=== PATIENT | male | born 1955 | race African-American/Black ===

== ENCOUNTER 2019-08-04 13:27 | Emergency (ER) | payer SELFPAY ==
--- NOTE | 2019-08-04 13:50 | EDM.PDOC ---
ED HPI GENERAL MEDICAL PROBLEM - General Stated Complaint: back pain and left wrist pain Time Seen by Provider: 08/04/19 13:47 Source of Information: Reports: Patient History Limitations: Reports: No Limitations - History of Present Illness INITIAL COMMENTS - FREE TEXT/NARRATIVE: HISTORY AND PHYSICAL: History of present illness: Patient is a 63-year-old male presents to the ED today with concern of right sided rib pain/flank pain and right wrist pain. Patient states that he has chronic right wrist pain and knows that is due to ligaments that were damaged during an injury a while back. Patient states he's been receiving cortisone injections in the wrist when he was seeing his primary care provider that was in my not. Patient states his primary care provider ended up moving and is no longer there and since then is not sure of the resources in order to get steroid injections around [place]. Patient states the right-sided rib pain and flank pain is new and he is concerned it due to his back or could be related to his liver as he has hepatitis C. Patient states that he has not had this evaluated but does not desire to have any sort of evaluation/diagnostics today and just wants to know of resources for steroid injection for his wrist as well as resources for primary care to establish care in [place]. Patient denies fever, chills, chest pain, shortness of breath, or cough. Denies headache, neck stiff ness, change in vision, syncope, or near syncope. Denies nausea, vomiting, abdominal pain, diarrhea, constipation, or dysuria. Has not noted any blood in urine or stool. Patient has been eating and drinking appropriately. Review of systems: As per history of present illness and below otherwise all systems reviewed and negative. Past medical history: As per history of present illness and as reviewed below otherwise noncontributory. Surgical history: As per history of present illness and as reviewed below otherwise noncontributory. Social history: See social history for further information Family history: As per history of present illness and as reviewed below otherwise noncontributory. Physical exam: General: Patient is alert, oriented, and in no acute distress. Patient sitting comfortably on exam table. HEENT: Atraumatic, normocephalic, pupils equal and reactive bilaterally, negative for conjunctival pallor or scleral icterus, mucous membranes moist, TMs normal bilaterally, throat clear, neck supple, nontender, trachea midline. No drooling or trismus noted. No meningeal signs. No hot potato voice noted. Lungs: Clear to auscultation, breath sounds equal bilaterally, chest nontender. Heart: S1S2, regular rate and rhythm without overt murmur Abdomen: Soft, nondistended, nontender. Negative for masses or hepatosplenomegaly. Negative for costovertebral tenderness. Pelvis: Stable nontender. Genitourinary: Deferred. Rectal: Deferred. Skin: Intact, warm, dry. No lesions or rashes noted. Extremities: Atraumatic, negative for cords or calf pain. Neurovascular unremarkable. Neuro: Awake, alert, oriented. Cranial nerves II through XII unremarkable. Cerebellum unremarkable. Motor and sensory unremarkable throughout. Exam nonfocal. Notes: Discussed the importance for follow-up and establishing care with a primary care provider. Resources for orthopedic provider's as well as primary care and been provided to patient. Voices understanding and is agreeable to plan of care. Denies any further questions or concerns at this time. Diagnostics: Patient declines all diagnostics and workup Therapeutics: None Prescription: None Impression: Medical screening exam Plan: 1. Rest, ice, elevate the affected extremity. You can apply ice and or heat 15 minutes on, 15 minutes off. 2. Ibuprofen as directed for pain management or discomfort. 3. Follow up with the Orthopedic provider and primary care provider as discussed. Return to the ED as needed and as discussed. Definitive disposition and diagnosis as appropriate pending reevaluation and review of above. Left Wrist Pain Score (Numeric/FACES): 7 - Related Data Allergies Allergy/AdvReac Type Severity Reaction Status Date / Time cat dander Allergy Rash Verified 08/04/19 13:59 Home Meds: Home Meds . [No Known Home Meds] 08/04/19 [History] ED ROS GENERAL - Review of Systems Review Of Systems: ROS reveals no pertinent complaints other than HPI. ED EXAM, GENERAL - Physical Exam Exam: See Below (See dictation) Course - Vital Signs Last Recorded V/S: Last Vital Signs Temp 36.1 C 08/04/19 13:56 Pulse 71 08/04/19 13:56 Resp 18 08/04/19 13:56 BP 136/85 08/04/19 13:56 Pulse Ox 95 08/04/19 13:56 Departure - Departure Time of Disposition: 14:14 Disposition: Home, Self-Care 01 Clinical Impression: Encounter for medical screening examination - Discharge Information Referrals: PCP,None [Primary Care Provider] - Additional Instructions: The following information is given to patients seen in the emergency department who are being discharged to home. This information is to outline your options for follow-up care. We provide all patients seen in our emergency department with a follow-up referral. The need for follow-up, as well as the timing and circumstances, are variable depending upon the specifics of your emergency department visit. If you don't have a primary care physician on staff, we will provide you with a referral. We always advise you to contact your personal physician following an emergency department visit to inform them of the circumstance of the visit and for follow-up with them and/or the need for any referrals to a consulting specialist. The emergency department will also refer you to a specialist when appropriate. This referral assures that you have the opportunity for follow-up care with a specialist. All of these measure are taken in an effort to provide you with optimal care, which includes your follow-up. Under all circumstances we always encourage you to contact your private physician who remains a resource for coordinating your care. When calling for follow-up care, please make the office aware that this follow-up is from your recent emergency room visit. If for any reason you are refused follow-up, please contact the [facility] Emergency Department at and asked to speak to the emergency department charge nurse. [facility] Primary Care [address] [place] [id number] [facility] [address] [facility] [place] [address] [facility] Specialty Care - Orthopedic Clinic Professional Building [address] [place] [address], [address] [place] [address] Dr Fam, Orthopedist [facility] [address] [facility] [place] [address] Dr Rose - Dr Rivera - Dr Melendez [facility] [address] [place] [address] [facility] [address] [place], [place] [address] 1. Rest, ice, elevate the affected extremity. You can apply ice and or heat 15 minutes on, 15 minutes off. 2. Ibuprofen as directed for pain management or discomfort. 3. Follow up with the Orthopedic provider and primary care provider as discussed. The numbers have been provided above for you to call and set up appointment. Return to the ED as needed and as discussed.
== END 2019-08-04 14:35 | disposition home or self-care (01) ==
LOC: MW.ED 13:27
DX: Z13.9 Encounter for screening, unspecified (principal); Z91.048 Other nonmedicinal substance allergy status
CPT/HCPCS: 99282